=== PATIENT | male | born 2000 | race Two or more races ===

== ENCOUNTER 2018-04-11 18:57 | Emergency (ER) | payer SELFPAY ==
--- NOTE | 2018-04-11 20:27 | ER Document Report ---
ED Psych Disorder / Suicide - General Chief Complaint: Suicidal Ideation Stated Complaint: PSYCH EVAL Time Seen by Provider: 04/11/18 20:20 Notes: Patient is here for mental health evaluation. He is accompanied by mobile crisis personnel a difficult environment in which free him to stay. He has been expressing some suicidal thoughts as well as some homicidal thoughts today , but says is been feeling this way off and on over the past 4 years. He spends times between here where his father lives and where his aunt lives and [place] where his mother lives. Has never had any mental health evaluation or care. He thinks he recalls being told something about having multiple personalities and having anger issues. Not on any current medications. TRAVEL OUTSIDE OF THE [place] IN LAST 30 DAYS: No - Related Data Allergies/Adverse Reactions: No Known Allergies Allergy (Verified 04/11/18 19:02) Past Medical History - Social History Smoking Status: Unknown if Ever Smoked Cigarette use (# per day): No Drug Abuse: Marijuana - Occasionally, but not recently. Family History: Reviewed & Not Pertinent Patient has suicidal ideation: Yes Patient has homicidal ideation: Yes Psychiatric Medical History: Reports: Other - Once spent about 10 days inpatient at mental health facility in [place]. - Immunizations Immunizations up to date: Yes Hx Diphtheria, Pertussis, Tetanus Vaccination: Yes Review of Systems - Review of Systems Notes: REVIEW OF SYSTEMS: CONSTITUTIONAL : Denies fever. EENT: Denies eye, ear, nose or mouth or throat pain or other symptoms. CARDIOVASCULAR: Denies chest pain. RESPIRATORY: Denies cough, chest congestion, or shortness of breath. GASTROINTESTINAL: Denies abdominal pain or nausea, vomiting, or diarrhea. GENITOURINARY: Denies difficulty or painful urinating, urinary frequency, blood in urine. MUSCULOSKELETAL: Denies back or neck pain. Denies joint pain or swelling. SKIN: Denies rash or skin lesions. NEUROLOGICAL: Denies LOC or altered mental status. Denies headache. Denies sensory loss or motor deficits. ALL OTHER SYSTEMS REVIEWED AND NEGATIVE. Physical Exam - Vital signs Vitals: Temp Pulse Resp BP Pulse Ox 98.6 F 70 18 125/62 99 04/11/18 19:10 04/11/18 19:10 04/11/18 19:10 04/11/18 19:10 04/11/18 19:10 Interpretation: Normal - Notes Notes: PHYSICAL EXAMINATION: GENERAL: Well-appearing, in no acute distress. Vital signs are all normal. At times, patient seems to be nearly in tears. HEAD: Atraumatic, normocephalic. EYES: Pupils equal round and reactive to light, extraocular movements intact. ENT: oropharynx clear without exudates. Moist mucous membranes. NECK: Normal range of motion, supple. LUNGS: Breath sounds clear and equal bilaterally. HEART: Regular rate and rhythm without murmurs. ABDOMEN: Soft, nontender. No guarding or rebound. No masses. BACK: No tenderness throughout entire back. EXTREMITIES: Normal range of motion without pain. NEUROLOGICAL: Normal speech, normal gait. Normal sensory, motor, and reflex exams. Awake, alert, and oriented x3. Cranial nerves normal. PSYCH: Seems subdued and depressed. Near tearful at times. SKIN: Warm, dry, no rashes. Course - Re-evaluation Re-evalutation: 04/11/18 20:27 Patient will have usual initial lab studies ordered. He is going to spend the night here until morning when he can be evaluated by mental health. - Vital Signs Vital signs: Temp Pulse Resp BP Pulse Ox 98.6 F 70 18 125/62 99 04/11/18 19:10 04/11/18 19:10 04/11/18 19:10 04/11/18 19:10 04/11/18 19:10 Discharge - Discharge Clinical Impression: Suicidal ideation, Homicidal ideation Referrals: LOCALMD,NO [Primary Care Provider] - Follow up as needed
--- NOTE | 2018-04-11 21:01 | ER Document Report ---
ED Psych Disorder / Suicide - General Chief Complaint: Suicidal Ideation Stated Complaint: PSYCH EVAL Time Seen by Provider: 04/11/18 20:20 Mode of Arrival: Ambulatory Information source: Patient Notes: 17-year-old male brought to the emergency department by mobile crisis for evaluation and treatment. Patient lives with his aunt and his father. He bounces from home to home. His mother lives in [place]. Occasionally he'll go and live with his mother for a period of time. He texted his mom storm that he wanted to kill his dad, his aunt, his aunt's young children and then kill himself. He is unhappy with his living situation and feels his dad and aunt are to blame. He states that he has been having depression, suicidal thoughts, and homicidal thoughts on and off for years. Patient denies any actual plans. Patient was evaluated by a psychiatrist in 2014. He was not started on any medications. He has not been following up with a psychiatrist since then. Patient says that he has been eating and sleeping less than normal recently because he's depressed. He denies any drug or alcohol use. TRAVEL OUTSIDE OF THE [place] IN LAST 30 DAYS: No - HPI Patient complains to provider of: Homicidal ideation, Suicidal ideation Onset: Just prior to arrival Onset was: Sudden Quality of pain: No pain Severity: None Pain Level: Denies Suicide Risk Factors: Depressed Situational problems related to: Parent Associated symptoms: Decreased appetite, Depressed, Tearful Similar symptoms previously: Yes Recently seen / treated by doctor: No - Related Data Allergies/Adverse Reactions: No Known Allergies Allergy (Verified 04/11/18 19:02) Past Medical History - Social History Smoking Status: Current Some Day Smoker Cigarette use (# per day): No Drug Abuse: Marijuana - Occasionally, but not recently. Family History: Reviewed & Not Pertinent Patient has suicidal ideation: Yes Patient has homicidal ideation: Yes Renal/ Medical History: Denies: Hx Peritoneal Dialysis Psychiatric Medical History: Reports: Other - Once spent about 10 days inpatient at mental health facility in [place]. - Immunizations Immunizations up to date: Yes Hx Diphtheria, Pertussis, Tetanus Vaccination: Yes Review of Systems - Review of Systems Constitutional: No symptoms reported EENT: No symptoms reported Cardiovascular: No symptoms reported Respiratory: No symptoms reported Gastrointestinal: No symptoms reported Genitourinary: No symptoms reported Musculoskeletal: No symptoms reported Skin: No symptoms reported Neurological/Psychological: Depression, Homicidal ideation, Suicidal ideation -: Yes All other systems reviewed and negative Physical Exam - Vital signs Vitals: Temp Pulse Resp BP Pulse Ox 98.6 F 70 18 125/62 99 04/11/18 19:10 04/11/18 19:10 04/11/18 19:10 04/11/18 19:10 04/11/18 19:10 Interpretation: Normal - Notes Notes: PHYSICAL EXAMINATION: GENERAL: Well-appearing, well-nourished and in no acute distress. HEAD: Atraumatic, normocephalic. EYES: Pupils equal round and reactive to light, extraocular movements intact, sclera anicteric, conjunctiva are normal. ENT: Nares patent, oropharynx clear without exudates. Moist mucous membranes. NECK: Normal range of motion, supple without lymphadenopathy LUNGS: Breath sounds clear to auscultation bilaterally and equal. No wheezes rales or rhonchi. HEART: Regular rate and rhythm without murmurs ABDOMEN: Soft, nontender, nondistended abdomen. No guarding, no rebound. No masses appreciated. Musculoskeletal: Normal range of motion, no pitting or edema. No cyanosis. NEUROLOGICAL: Cranial nerves grossly intact. Normal speech, normal gait. Normal sensory, motor exams PSYCH: Tearful. Suicidal and homicidal ideations. Poor judgement. SKIN: Warm, Dry, normal turgor, no rashes or lesions noted. Course - Re-evaluation Re-evalutation: 04/11/18 23:53 Labs obtained and are WNL. Will turn over patient care. Patient to be evaluated by psych in the morning. - Vital Signs Vital signs: Temp Pulse Resp BP Pulse Ox 98.6 F 70 18 125/62 99 04/11/18 19:10 04/11/18 19:10 04/11/18 19:10 04/11/18 19:10 04/11/18 19:10 - Laboratory Result Diagrams: 04/11/18 20:30 04/11/18 20:30 Laboratory results interpreted by me: 04/11/18 04/11/18 04/11/18 20:30 20:30 20:30 Seg Neutrophils % 80.5 H Sodium 146.0 H Calcium 10.4 H Alkaline Phosphatase 54 L Urine Ascorbic Acid 40 H Salicylates < 1.0 L Acetaminophen < 10 L - EKG Interpretation by Me EKG shows normal: Sinus rhythm Rate: Normal Rhythm: NSR - Ventricular rate 69, NV interval 124, QRS duration 96, QTc 412, sinus rhythm. Discharge - Discharge Clinical Impression: Suicidal ideation, Homicidal ideation Referrals: LOCALMD,NO [NO LOCAL MD] - Follow up as needed
[2018-04-11 21:03] LABS: ABSOLUTE EOSINOPHILS # (AUTO) 0.1 10^3/uL (0.0-0.6); ABSOLUTE LYMPHOCYTES (AUTO) 1.2 10^3/uL (0.5-4.7); ABSOLUTE MONOCYTES (AUTO) 0.4 10^3/uL (0.1-1.4); EOSINOPHILS % (AUTO) 0.9 % (0-6); HEMATOCRIT 42.8 % (37.9-51.0); HEMOGLOBIN 14.8 g/dL (13.5-17.0); MEAN CORPUSCULAR HGB CONC 34.6 g/dL (32.0-36.0); RED CELL DISTRIBUTION WIDTH 12.6 % (11.5-14.0); TOTAL CELLS COUNTED % (AUTO) 100 %
[2018-04-11 21:14] LABS: ABSOLUTE NEUT (AUTO) 7.2 10^3/uL (1.7-8.2); BASOPHILS % (AUTO) 0.4 % (0-2); LYMPHOCYTES % (AUTO) 13.5 % (13-45); MEAN CORPUSCULAR HEMOGLOBIN 32.3 pg (27.0-33.4); MEAN CORPUSCULAR VOLUME 94 fl (80-97); MONOCYTES % (AUTO) 4.7 % (3-13); PLATELET COUNT 293 10^3/uL (150-450); RED BLOOD COUNT 4.58 10^6/uL (4.35-5.55); SEGMENTED NEUTROPHILS % (AUTO) 80.5 % (42-78); WHITE BLOOD COUNT 8.9 10^3/uL (4.0-10.5)
[2018-04-11 21:18] LABS: ACETAMINOPHEN < 10 ug/mL (10-30); ALANINE AMINOTRANSFERASE 23 U/L (10-40); ALBUMIN 5.1 g/dL (3.7-5.6); ALCOHOL < 10 mg/dL (NONE DETECTED); ALKALINE PHOSPHATASE 54 U/L (65-260); ANION GAP 14 (5-19); ASPARTATE AMINO TRANSFERASE 18 U/L (10-45); BILIRUBIN,DIRECT 0.3 mg/dL (0.0-0.4); BILIRUBIN,TOTAL 0.5 mg/dL (0.2-1.3); BLOOD UREA NITROGEN 15 mg/dL (7-20); CALCIUM 10.4 mg/dL (8.4-10.2); CARBON DIOXIDE 28 mmol/L (22-30); CHLORIDE 104 mmol/L (98-107); GLUCOSE 93 mg/dL (75-110); POTASSIUM 4.2 mmol/L (3.6-5.0); SALICYLATE < 1.0 mg/dL (2.0-20.0); TOTAL PROTEIN 8.1 g/dL (6.3-8.2)
[2018-04-11 21:22] LABS: APPEARANCE,URINE CLEAR; BILIRUBIN,URINE NEGATIVE (NEGATIVE); COLOR,URINE YELLOW; GLUCOSE, URINE NEGATIVE (NEGATIVE); KETONES,URINE NEGATIVE (NEGATIVE); LEUKOCYTE ESTERASE,URINE NEGATIVE (NEGATIVE); NITRITE,URINE NEGATIVE (NEGATIVE); PROTEIN,URINE NEGATIVE (NEGATIVE); URINE SPECIFIC GRAVITY 1.025; UROBILINOGEN,URINE NEGATIVE mg/dL (<2.0)
[2018-04-11 21:32] LABS: URINE AMPHETAMINES SCREEN NEGATIVE; URINE BARBITURATES SCREEN NEGATIVE; URINE BENZODIAZEPINES SCREEN NEGATIVE; URINE COCAINE SCREEN NEGATIVE; URINE MARIJUANA (THC) SCREEN UNCONFIRMED POSITIVE; URINE METHADONE SCREEN NEGATIVE; URINE PHENCYCLIDINE SCREEN NEGATIVE
[2018-04-12] MEDS ORDERED: DIPHENHYDRAMINE HCL 50 MG CAPSULE PO ONE ×2 (01:31→15:51)
--- NOTE | 2018-04-12 07:34 | EKG REPORT ---
SEVERITY:- BORDERLINE ECG - SINUS RHYTHM ATRIAL PREMATURE COMPLEX BORDERLINE T ABNORMALITIES, ANT-LAT LEADS : Confirmed by: Alvaro Soto MD 12-Apr-2018 07:33:58
--- NOTE | 2018-04-12 16:53 | ER Document Report ---
Doctor's Note Notes: 04/12/18 16:53 The patient has been complaining about being anxious and unable to calm down. He was given a dose of Benadryl which was what he was given about 12 hours ago for the same problem. He was seen by Dr. Posada and decision was made to discharge patient with follow-up instructions.
[2018-04-12 17:13] VITALS: BP 112/64
== END 2018-04-12 17:13 | disposition home or self-care (01) ==
LOC: ER 18:57
DX: R45.851 Suicidal ideations (principal); R45.850 Homicidal ideations; F17.200 Nicotine dependence, unspecified, uncomplicated
CPT/HCPCS: 36415; 80053; 80307; 81001; 85025; 93005; 93010; 99285

== ENCOUNTER 2019-06-03 07:16 | Emergency (ER) | payer SELFPAY ==
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
[2019-06-03] MEDS ORDERED: CLINDAMYCIN HCL 150 MG CAPSULE PO ONE (10:03)
[2019-06-03] MEDS ORDERED: TRAMADOL HCL 50 MG TABLET PO ONE (10:04)
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
[2019-06-03] MEDS ORDERED: DIPH/PERTUSS(ACELL)/TETANUS VAC/PF 0.5 ML SYR (>=10YO) IM ONE (12:07)
[2019-06-03 12:53] VITALS: BP 103/50
== END 2019-06-03 12:54 | disposition home or self-care (01) ==
LOC: ER 07:16
DX: S01.511A Laceration without foreign body of lip, initial encounter (principal); K08.89 Other specified disorders of teeth and supporting structures; R22.0 Localized swelling, mass and lump, head; Y04.0XXA Assault by unarmed brawl or fight, initial encounter; F17.200 Nicotine dependence, unspecified, uncomplicated
CPT/HCPCS: 70486; 90471; 90715; 99283